=== PATIENT | female | born 1945 | race Caucasian/White ===

== ENCOUNTER → 2017-03-02 | Outpatient (CLI) | payer MEDICARE, BC ==
[~2017-03-02] MED LIST: ASPIRIN EC81 MG PO; CRANBERRY500 M1 PO; Cranberry PO; FOSAMAX70 MG PO; JANUMET XR 50-1 EACH PO; LEVOTHROID (S112 MCG PO; LIPITOR20 M1 PO; LIPITOR40 MG PO; LISINOPRIL-HCT1 EACH PO; NITROSTAT0.4 MG SL; OXYGEN M-15 NOSE; PROTONIX40 M1 PO; TRIMETHOPRIM100 MG PO; ULTRACET TABLE1 EACH PO; VITAMIN D2000 UNIT PO
== END | disposition disaster alternative care site (69) ==
LOC: LKCL 15:06
DX: E55.9 Vitamin D deficiency, unspecified (principal)

== ENCOUNTER → 2017-03-23 | Outpatient (CLI) | payer MEDICARE, BC | END | disposition disaster alternative care site (69) | LOC: GNUT 10:17 | DX: E11.65 Type 2 diabetes mellitus with hyperglycemia (principal) ==

== ENCOUNTER → 2017-04-20 | Outpatient (CLI) | payer MEDICARE, BC | LOC: LCNC 08:52 | DX: E78.5 Hyperlipidemia, unspecified (principal) ==